=== PATIENT | female | born 1990 ===

== ENCOUNTER 2017-03-28 09:41 | Outpatient (CLI) | payer OTHER ==
--- NOTE | 2017-03-28 11:05 | DIAGNOSTIC IMAGING REPORT ---
PROCEDURE: US ABDOMEN ULTRASOUND-COMPLETE INDICATION: ABD PAIN; HYPERTHYROIDISM TECHNIQUE: Banegas scale and color Doppler sonographic images of the abdomen were obtained. COMPARISON: None. FINDINGS: Gallbladder is on the small side and gallbladder wall appears prominent, measuring 3 mm without hyperemia. No gallstones. Negative Baker's sign. Normal CBD measures 2 mm. Normal liver and pancreas. Aorta and IVC are patent. Normal hepatopetal flow. Right kidney measures 4.5 cm with a 1.7 cm simple upper pole cyst. Normal left kidney measures 10.8 cm. IMPRESSION: 1. Somewhat small gallbladder with borderline gallbladder wall thickening. There are no inflammatory changes and this may represent chronic changes. Nuclear medicine hepatobiliary scan with ejection fraction may be useful to assess function.
--- NOTE | 2017-03-28 13:13 | DIAGNOSTIC IMAGING REPORT ---
PROCEDURE: XR UPPER GI WITH SBFT INDICATION: Abdominal pain. Nausea. Diarrhea. TECHNIQUE: Double contrast study. Fluoroscopy time 3.2 minutes 1001.81 mGy. Barium contrast material ingested and images were acquired over a 30-minute time interval. Study was originally ordered as an upper GI. However, in view of the patient's history and rapid transit of contrast material to the colon (15 minutes), it was also decided to complete small bowel series at this time. The patient was shielded for this study (with the exception of small bowel images) COMPARISON: None. FINDINGS: Mild to moderate gastroesophageal reflux. Esophagus is otherwise normal. Stomach and duodenum are normal. There is no evidence of ulcer There is rapid transit through the small bowel with contrast reaching the colon in 15 minutes. Small bowel pattern is normal, including the terminal ileum. IMPRESSION: 1. Mild to moderate gastroesophageal reflux. 2. Normal stomach and duodenum. 3. Rapid transit of contrast material in the colon (15 minutes). Small bowel pattern is otherwise normal, including terminal ileum. 4. Findings discussed with the patient and called to Dr. Bishop.
== END 2017-03-28 23:00 ==
LOC: US SRH 09:41
DX: K82.9 Disease of gallbladder, unspecified (principal); K21.9 Gastro-esophageal reflux disease without esophagitis